=== PATIENT | female | born 1950 | race African-American/Black ===

== ENCOUNTER 2016-11-13 12:44 | Emergency (ER) | payer OTHER ==
[~2016-11-13] VITALS: Ht 175.3 cm; Wt 76.2 kg
[2016-11-13 13:09] VITALS: BP 158/76
== END 2016-11-13 13:20 | disposition home or self-care (01) ==
LOC: ER 12:44
DX: H11.32 Conjunctival hemorrhage, left eye (principal); Z88.0 Allergy status to penicillin

== ENCOUNTER 2017-02-22 16:06 | Emergency (ER) | payer OTHER ==
[~2017-02-22] VITALS: Ht 175.3 cm; Wt 77.6 kg
[2017-02-22] MEDS ORDERED: SODIUM CHLORIDE 0.9% 1,000 ML IV ONE (16:58)
[2017-02-22 18:31] LABS: Basophils # (auto) 0 uL; Basophils % (auto) 0.3 % (0.0-2.0); Eosinophils # (auto) 0.2 uL; Hematocrit 33.4 % (36.0-46.0); Hemoglobin 10.9 g/dL (12.2-16.2); Lymphocytes # (auto) 1.4 uL; Lymphocytes % (auto) 27.2 % (10.0-50.0); Mean Corpuscular Hemoglobin 31.3 pg (28.0-32.0); Mean Corpuscular Hgb Conc. 32.6 g/dL (32.0-36.0); Mean Corpuscular Volume 95.9 fL (80.0-100.0); Mean Platelet Volume 8.3 fL (6.9-10.8); Monocytes # (auto) 0.5 uL; Monocytes % (auto) 10.5 % (0.0-12.0); Neutrophils # (auto) 2.9 uL; Platelet Count (auto) 361 10^3/uL (140-450); Red Cell Distribution Width 15.6 % (11.8-14.3); White Blood Cell 5.1 10^3/uL (4.4-10.8)
[2017-02-22 18:53] LABS: Albumin 3.6 g/dL (3.4-5.0); BUN/Creatinine Ratio 13.8; Bilirubin, Total 0.1 mg/dL (0.2-1.0); Magnesium 2.7 mg/dL (1.6-2.6); Potassium 4.1 mmol/L (3.5-5.1)
[2017-02-22 21:26] LABS: Urine Bilirubin Negative (Negative); Urine Blood Negative /uL (Negative); Urine Color Yellow (Yellow); Urine Glucose Normal (Normal); Urine Ketone Negative (Negative); Urine Mucus FEW (None Seen); Urine Nitrite Negative (Negative); Urine RBC <1 /hpf (0 - 4); Urine Squamous Epithelial Cell FEW /hpf (<5); Urine Urobilinogen Normal (Negative)
[2017-02-22] MEDS ORDERED: cloNIDine HCL 0.1 MG TAB ONE (22:42)
[2017-02-22] MEDS ORDERED: cloNIDine HCL 0.1 MG TAB PO ONE (23:30)
[2017-02-23] MEDS ORDERED: amLODIPine BESYLATE 5 MG TAB PO ONE
[2017-02-23] MEDS ORDERED: amLODIPine BESYLATE 5 MG TAB ONE (00:07)
[2017-02-23] MEDS ORDERED: LORazepam 0.5 MG TAB PO ONE (00:45)
[2017-02-23] MEDS ORDERED: cloNIDine HCL 0.1 MG TAB PO ONE (00:45)
[2017-02-23 01:00] VITALS: BP 178/85
== END 2017-02-23 01:00 | disposition home or self-care (01) ==
LOC: ER 16:10 → UNDOADMIN 16:11 → TELE 16:11 → ER 02-23 01:00
DX: I10 Essential (primary) hypertension (principal); N39.0 Urinary tract infection, site not specified; Z88.0 Allergy status to penicillin; R07.9 Chest pain, unspecified
CPT/HCPCS: 36415; 71020; 80053; 81001; 83735; 84443; 85025; 93005; 96360; 96361; 99285; J7030